=== PATIENT | female | born 1940 | race Caucasian/White ===

== ENCOUNTER 2021-04-09 18:07 | Emergency (ER) | payer OTHER ==
[~2021-04-09] VITALS: Ht 157.5 cm; Wt 53.5 kg
--- NOTE | ~2021-04-09 | EMS ---
[address] [address] EMS Patient Care Report Name: CIRILO GALO Room #: PRE [facility]..#: [id number] Admission: Attend Phys: Discharge: Date of : 36 Report #: [id number] THIS REPORT FOR: //name// Report Transmitted: 04/09/2021 17:43 EMS Care Summary [place], [place]/[facility] Incident [id number] @ 04/09/2021 17:21 Incident Location [address] [place] [address] Patient RAHUL GALO Female, 80 Years 1940 Patient Address [address] [place] [address] Patient History Gastro-Esophageal Reflux Disease (GERD), Patient Allergies Penicillin allergy,Sulfa, Patient Medications Dexilant, Chief Complaint vomiting Disposition Transported No Lights/[place] Reason Sick Person Transported To [facility] Narrative FIND PT SITTING IN BATHROOM VOMITING. PT STATES THAT SHE HAD A SUDDEN ONSET OF NAUSEA AND VOMITING. PT IS ALSO HAVING DIARRHEA. PT STATES THAT SHE FELT FINS THIS MORNING AND REST OF DAY. PT IS ALERT AND ABLE TO ANSWER ALL QUESTIONS. PT IS DENIES ANY CHEST PAIN OR SOA. PT STATES THAT SHE IS ALSO FULLY VACCINATED. [address] [address] EMS Patient Care Report Name: CIRILO GALO [facility] [id number] Admission: Attend Phys: Discharge: Date of : 36 Report #: [id number] PT VS TAKEN AND MOVED TO [employer] AND CARRIED TO COT. PT MOVED TO UNIT AND ON EKG AND [address]LEVATION . A IV IS STARTED AND ZOFRAN GIVEN .PT HAS SOME RELIEF. PT IS CALMED. PT MAKES NO OTHER CHANGES IN ROUTE. PT CARE IS TOT RN IN ROOM 12 Initial Vitals @17:38P: 74,BP: 143/63,CO: 0,SpO2: 98, @17:31P: 85,R: 22,BP: 162/72,Pain: 0/10,GCS: 15,Glucose: 152,CO: 1,SpO2: 98,Revised Trauma: 12, Assessments @17:29MENTAL:No Abnormalities,SKIN:HEENT:LUNG SOUNDS:General: Diarrhea,General: Nausea,General: Vomiting,ABDOMEN:General: Diarrhea,General: Nausea,General: Vomiting,PELVIS//GI:EXTREMITIES:PULSE:NEURO: Impression Vomiting Procedures @17:28 ALS Assessment Response: UnchangedSucceeded @17:39 3-Lead ECG Response: UnchangedSucceeded @17:45 12-Lead ECG Response: UnchangedSucceeded @17:44 IV Therapy - Saline Lock 10cc (18 ga) Site: Antecubital-Right Response: UnchangedSucceeded @17:48 Zofran - 4 Milligrams (mg) - Intravenous (IV) Response: Improved Timeline 17:18,Call Received 17:18,Dispatch Notified 17:21,Dispatched 17:21,En Route 17:25,On Scene 17:27,At Patient 17:28,ALS Assessment,Response: UnchangedSucceeded, 17:31,BP: 162/72 M,PULSE: 85,RR: 22 R,SPO2: 98 Ox,ETCO2: ,B,PAIN: 0,GCS: 15, 17:38,BP: 143/63 M,PULSE: 74,RR: R,SPO2: 98 Ox,ETCO2: ,BG: ,PAIN: ,GCS: , 17:39,3-Lead ECG,Response: UnchangedSucceeded, 17:44,IV Therapy - Saline Lock 10cc 18 ga Site: Antecubital-Right,Response: UnchangedSucceeded, 17:45,12-Lead ECG,Response: UnchangedSucceeded, 17:48,Zofran - 4 Milligrams (mg) - Intravenous (IV),Response: Improved 17:50,Depart Scene 18:05,At Destination 18:17,[place] [address] EMS Patient Care Report Name: CIRILO GALO Room #: [facility]..#: [id number] Admission: Attend Phys: Discharge: Date of : 36 Report #: [id number] Disclaimer [email or web address] Copyright 2020 [employer] This EMS Care Summary contains data elements from the applicable legal record (which may be displayed differently). It is designed to provide pertinent information for the following purposes: continuity of care, clinical quality, and state data reporting. The complete legal record is available to ED staff and administrators of the receiving hospital in [facility]'s Patient Tracker. All data is provided "as is."
[2021-04-09 18:28] LABS: ABSOLUTE NEUTROPHILS 5.9 thou/uL (1.4-8.2); BASOPHILS 0.3 % (0.0-2.0); EOSINOPHILS 1.2 % (0.0-3.0); HEMATOCRIT 35.3 % (37.0-47.0); HEMOGLOBIN 12.2 gm/dL (12.0-15.0); MCH 34.7 pg (26.0-34.0); MCHC 34.6 g/dL (28.0-37.0); MCV 100.3 fL (80.0-100.0); MONOCYTES 4.6 % (1.0-8.0); PLATELET COUNT 147 thou/uL (150-400); POLYS 86.9 % (36.0-66.0); RBC 3.52 mil/uL (4.20-5.00); RDW 13.6 % (10.5-14.5); WBC 6.8 thou/uL (4.0-11.0)
[2021-04-09] MEDS ORDERED: DEXILANT60 MG PO (18:37)
[2021-04-09] MEDS ORDERED: PROTONIX40 M2 PO (18:37)
[2021-04-09] MEDS ORDERED: SERTRALINE HCL100 MG PO (18:37)
[2021-04-09] MEDS ORDERED: TEMAZEPAM15 MG PO (18:37)
[2021-04-09] MEDS ORDERED: SPIRONOLACTONE25 MG PO (18:38)
[2021-04-09] MEDS ORDERED: FLUVASTATIN ER80 MG PO (18:38)
[2021-04-09] MEDS ORDERED: ARICEPT10 MG PO (18:38)
[2021-04-09] MEDS ORDERED: COLESTIPOL HCL1 G1 PO (18:39)
[2021-04-09] MEDS ORDERED: LEVOTHYROXINE50 MCG PO (18:39)
[2021-04-09 19:10] LABS: CALCIUM 9.3 mg/dL (8.5-10.1); CREATININE 0.9 mg/dL (0.6-1.0); POTASSIUM 3.5 mmol/L (3.5-5.1)
[2021-04-09 19:15] LABS: ALBUMIN 4.4 g/dL (3.4-5.0); TOTAL BILIRUBIN 0.4 mg/dL (0.2-1.0); TOTAL PROTEIN 7.2 g/dL (6.4-8.2)
[2021-04-09] MEDS ORDERED: ZOFRAN ODT4 MG PO (20:12)
[2021-04-09 21:00] VITALS: BP 126/54
== END 2021-04-10 01:00 | disposition home or self-care (01) ==
LOC: ER 18:07
PROVIDERS: Emergency Medicine
DX: K52.9 Noninfective gastroenteritis and colitis, unspecified (principal); R11.2 Nausea with vomiting, unspecified; I10 Essential (primary) hypertension; E78.5 Hyperlipidemia, unspecified; Z88.0 Allergy status to penicillin; Z88.2 Allergy status to sulfonamides; Z79.899 Other long term (current) drug therapy